=== PATIENT | female | born 1990 ===

== ENCOUNTER 2016-03-04 15:33 | Outpatient (CLI) | payer OTHER ==
[2016-03-04 16:43] VITALS: BMI 26.6
== END 2016-03-04 16:57 | disposition home or self-care (01) ==
LOC: FBCOUT 15:33 → FBC 15:34 → FBCOUT 16:57
PROVIDERS: ATTEND Family Medicine
DX: O26.899 Other specified pregnancy related conditions, unspecified trimester (principal); R06.02 Shortness of breath; Z3A.00 Weeks of gestation of pregnancy not specified
CPT/HCPCS: 59025; 81002; G0463

== ENCOUNTER 2016-03-09 01:06 | Inpatient (IN) | payer OTHER ==
[2016-03-09 01:18] VITALS: BMI 26.2
[2016-03-09] MEDS ORDERED: LACTATED RINGERS 1,000 ML IV PRN (01:43)
[2016-03-09] MEDS ORDERED: OXYTOCIN IN LR 500 ML IV ONE ×2 (01:43→02:11)
--- NOTE | 2016-03-09 02:06 | PDOC36 ---
Provider Note Note: cc: Admission H&P HPI: 25 y.o. year old NANY 03/13/2016, by Ultrasound at 39w3d presents with contractions every 2-3 minutes. REVIEW OF SYSTEMS GENERAL:~ No fever or headache EYES:~ No double or blurry vision. CARDIOVASCULAR:~ No chest pain. RESPIRATORY:~ No severe shortness of breath or cough. GASTROINTESTINAL:~ No nausea or vomiting or right upper quadrant pain.~ PSYCHIATRIC:~ No anxiety or depression. PROBLEMS Normal Anemia echogenic intracardiac focus OB HISTORY #: 1, Date: 03/27/13, Sex: Male, Weight: 3.118 kg (6 lb 14 oz), GA: 39w0d, Delivery: Vaginal, Spontaneous Delivery, Apgar1: None, Apgar5: None, Living: Yes , Comments: None PSH None SOC HX Reports that she quit smoking about 7 months ago. She has never used smokeless tobacco. She reports that she drinks alcohol. She reports that she does not use illicit drugs. ALL Ibuprofen - Hives MEDICATIONS ~ Vit-DSS-Fe Cbn-FA ( AD) tablet, Take 1 tablet by mouth., Disp : , Rfl:~ PHYSICAL EXAMINATION VITAL SIGNS:~ AFVSS Estimated body mass index is 25.64 Total weight gain is 14.04 kg (30 lb 15.3 oz) FHT:~ 130s Cat I [place]:~ Contractions q2-3 minutes SVE:~ 5/90/-2 GENERAL:~ No distress CARDIOVASCULAR:~ Regular rate and rhythm, no murmur, JVD or pedal edema. RESPIRATORY:~ Clear to auscultation bilaterally, respiratory effort is nonlabored at rest. GASTROINTESTINAL:~ Gravid no fundal tenderness NEUROLOGIC:~ Deep tendon reflexes are 2+ in the knees.~ Cranial nerves II-XII are grossly intact. PSYCHIATRIC:~ Alert and oriented x3, judgement and memory is intact, mood is pleasant. LABS & STUDIES O+ Antibody- Rubella Immune Hep B- HIV- GC/Chlamydia- Trep- Hgb 10.7 GBS Negative ULTRASOUNDS 4 wks -- Dating U/S at shows very early , between 4-5 weeks. Patient needs follow-up U/S in 3-4 weeks to establish dates. 8 wks - Dating US at . 20 wks - anatomy survey with isolated echogenic intracardiac focus. Grade I posterior placenta without previa. LUL nl. Male. 22 wks - detailed anatomy U/S with MFM. EIF present. Otherwise normal. ASSESSMENT 25 y.o. year old NANY 03/13/2016, by Ultrasound at 39w3d in labor PLAN Labor: Admit for expectant management. BF: Yes BCM: IUD Peds: [facility] ([facility]) Tdap: 12/30/15. Flu 11/23/2015 Desires circumcision of infant. Also has unhairing machine operator for placenta encapsulation, Katie Foy plan scanned into media tab Echogenic Intracardiac Focus: Sent to Perinatology where they confirmed the EIF. Patient counseled where she had a cfDNA drawn which was negative. Anemia: Mild. Leander Almodovar MD [facility]
[2016-03-09] MEDS ORDERED: LIDOCAINE 1% (PRES FREE) 30 ML VIAL ONE (02:10)
[2016-03-09] MEDS ORDERED: PUMP TUBING ONE (02:10)
[2016-03-09] MEDS ORDERED: OXYTOCIN 10 UNITS/ML VIAL ONE (02:10)
[2016-03-09] MEDS ORDERED: MINERAL OIL 25 ML BOT ONE (02:10)
[2016-03-09] MEDS ORDERED: LIDOCAINE Viscous 2% 15 ML UDCUP ONE (02:10)
[2016-03-09] MEDS ORDERED: LACTATED RINGERS 1,000 ML ONE (02:11)
[2016-03-09] MEDS ORDERED: IV START KIT ONE (02:11)
[2016-03-09] MEDS ORDERED: SODIUM CHLORIDE 0.9% FLUSH 20 ML ONE ×2 (02:12→03:16)
[2016-03-09] MEDS ORDERED: EPIDURAL PUMP SET ONE (03:34)
[2016-03-09] MEDS ORDERED: FENTANYL/ROPIVACAINE EPIDURAL 0 ML EP ONE (03:34)
[2016-03-09] MEDS ORDERED: FENTANYL 100 MCG/2 ML VIAL ONE (04:10)
[2016-03-09] MEDS ORDERED: FENTANYL 100 MCG/2 ML VIAL IV ONE (06:09)
--- NOTE | 2016-03-09 06:19 | PCMDEL ---
Delivery Note - Delivery Delivery (Date): 03/09/16 Delivery (Time): 03:56 Gender: Female Presentation: Cephalic Position: OA Umbilical Cord: 3 Vessel Delayed Cord Clamping:: Not Performed Placenta:: 04:08 EBL:: 350 mL Perineum:: 2nd degree perineal Suture:: 2-0 Vicryl Anesthesia/Meds:: 1% xylocaine Length ROM:: 4 minutes
[2016-03-09] MEDS ORDERED: LIDOCAINE 1% (PRES FREE) 30 ML VIAL SUB-Q ONE (06:29)
[2016-03-09] MEDS ORDERED: ACETAMINOPHEN 325 MG TABLET PO PRN (07:24)
[2016-03-09] MEDS ORDERED: LANOLIN 50 APPLIC/7G TUBE TP PRN (07:24)
[2016-03-09] MEDS ORDERED: CALCIUM CARBONATE 500 MG TAB.CHEW PO PRN (07:24)
[2016-03-09] MEDS ORDERED: MAGNESIUM HYDROXIDE 30 ML UDCUP PO PRN (07:24)
[2016-03-09] MEDS ORDERED: DOCUSATE SODIUM 100 MG CAPSULE PO PRN (07:24)
[2016-03-09] MEDS ORDERED: SENNOSIDES 8.6 MG TABLET PO PRN (07:24)
[2016-03-09] MEDS: BENZOCAINE/MENTHOL 60 APPLIC/BOT TP PRN (08:18)
[2016-03-09] MEDS: HYDROCODONE/ACETAMINOPHEN 5/325MG TABLET PO PRN ×4 (08:37→22:34)
[2016-03-10] MEDS: HYDROCODONE/ACETAMINOPHEN 5/325MG TABLET PO PRN ×2 (03:41→10:56)
[2016-03-10 06:49] LABS: HEMATOCRIT 29.9 % (37.0-47.0); HEMOGLOBIN 9.5 gm/l (12.0-16.0)
[2016-03-10 09:19] VITALS: BP 106/73
--- NOTE | 2016-03-10 10:19 | PDOC44 ---
- Subjective Day: 1 Patient doing well. States lochia minimal. Pain controlled with meds. BF well. Tolerating PO. Denies dizziness. Reports Pain Tolerable, Reports , Reports Lochia Light, Reports Tolerating Regular Diet, Denies Nausea, Denies Vomiting - Objective Temp Pulse Resp BP Pulse Ox 97.8 F 88 14 106/73 03/10/16 09:00 03/10/16 09:00 03/10/16 09:00 03/10/16 09:00 Lab Results 03/10/16 06:30 Hgb 9.5 L Hct 29.9 L Current Medications Generic Name Dose Route Start Last Admin Trade Name Freq PRN Reason Stop Dose Admin Acetaminophen 325 - 650 mg 03/09/16 07:24 Tylenol PO Q4H PRN Pain (Mild) Acetaminophen/Hydrocodone Bitart 1 - 2 tab 03/09/16 07:24 03/10/16 03:41 [place] 5/325 PO 2 tab Q4H PRN Administration Pain (Moderate) Benzocaine/Menthol 1 applic 03/09/16 07:24 03/09/16 08:18 Dermoplast TP 1 bot PRN PRN Administration Patient Comfort Calcium Carbonate/Glycine 500 - 1,000 mg 03/09/16 07:24 Tums PO BID PRN Indigestion Docusate Sodium 100 mg 03/09/16 07:24 Colace PO DAILY PRN Comfort Emollient Ointment 1 applic 03/09/16 07:24 03/09/16 17:06 [id number] TP 1 tube PRN PRN Administration sore nipples Magnesium Hydroxide 30 ml 03/09/16 07:24 Milk Of Magnesia PO BEDTIME PRN Constipation Senna 17.2 mg 03/09/16 07:24 Senokot PO BEDTIME PRN Comfort Sodium Chloride 10 ml 03/09/16 07:24 Normal Saline 10ml Flush IV PRN PRN IV Flush - Physical Exam General: Afebrile, No Acute Distress Psych/Mental Status: Mood/Affect Appropriate, Bonding Well Neurological: Alert, Normal Speech Lungs: Clear to Auscultation Bilaterally, Normal Air Movement Cardiovascular: Regular Rate and Rhythm, Normal S1, Normal S2 Breast: Nipples Intact Fundus: Firm, Midline Extremities: Full ROM, No Edema, No Tenderness Skin: Normal Color, Warm, Dry, Intact, No Rash - Problems:Assessment/Plan (1) (normal spontaneous vaginal delivery) Status: Acute Assessment/Plan: PPD#1 s/p Desires early d/c home Mild anemia, will continue PNV and is also having placenta encapsulated RTC in 6 weeks for PP visit with PCP Disposition: Stable, Anticipate DC to Home
[2016-03-10] MEDS: BENZOCAINE/MENTHOL 60 APPLIC/BOT TP PRN (10:56)
[2016-03-10] MEDS ORDERED: IV START KIT ONE (13:16)
== END 2016-03-10 11:25 | disposition home or self-care (01) | DRG 775 ==
LOC: FBCOUT 01:06 → FBC 01:06 → FBCOUT 01:40 → FBC 01:40
PROVIDERS: ADMIT Family Medicine; ATTEND Family Medicine
PROC: 10E0XZZ Delivery of Products of Conception, External Approach (ICD-10-PCS; principal; 2016-03-09)
PROC: 0KQM0ZZ Repair Perineum Muscle, Open Approach (ICD-10-PCS; 2016-03-09)
DX: O99.02 Anemia complicating childbirth (principal); O70.1 Second degree perineal laceration during delivery; O28.4 Abnormal radiological finding on antenatal screening of mother; Z3A.39 39 weeks gestation of pregnancy; Z37.0 Single live birth; Z87.891 Personal history of nicotine dependence

== ENCOUNTER 2016-03-17 15:12 | Outpatient (CLI) | payer OTHER | END 2016-03-17 15:52 | LOC: BABIESSH 15:12 | PROVIDERS: ATTEND Family Medicine | DX: Z39.1 Encounter for care and examination of lactating mother (principal) ==